=== PATIENT | male | born 1945 | race Caucasian/White ===

== ENCOUNTER → 2019-06-15 | Day surgery (SDC) | payer MEDICARE, BC ==
[~2019-06-15] MED LIST: ALIGN4 MG; AMBIEN5 MG PO; ASPIRIN81 MG; ATORVASTATIN CA20 MG PO; CARVEDILOL12.5 MG PO; CENTRUM SILVER1 EAC4; CIPRO500 MG PO; FUROSEMIDE40 MG PO; GLUCOSAMINE &1 EAC1; IRON; JANUVIA100 MG PO; LIDOCAINE HCL 2% LOCAL INJ 5 ML SDV VIAL INJ ONE; LOSARTAN POTASS25 MG; METOLAZONE5 MG PO; POTASSIUM CHLO10 ME1 PO; PROPOFOL IV EMULSION 10 MG/ML 20 ML VIAL ONE; SEVOFLURANE INHAL SOLN 250 ML PEN BTL ONE; VITAMIN D34000 UNIT
--- NOTE | 2019-06-15 07:10 | Pre Op History & Physical ---
DATE OF SURGERY: 06/15/2019. CHIEF COMPLAINT: Left-sided hearing loss. HISTORY OF PRESENT ILLNESS: This 74-year-old male, who was seen in the beginning of May for a 3-week history of hearing loss. The patient denies any tinnitus. He denies any vertigo. Hearing loss was sudden in onset. The patient has no surgery to the ear. He denies any discharge or otalgia from the ear. He had ear cleaned out previously. Audiogram of the ear, that was done recently showed the patient has right ear [id number] high-frequency sensory hearing loss, with speech discrimination of 80%, and profound hearing loss on the left ear with speech discrimination of 8%. The patient had an MRI of the skull base. The patient had CT scan of the IAC because he had a pacemaker, which did not show any abnormality in the IAC area. The patient is a type 2 diabetic. REVIEW OF SYSTEMS: System review showed no recent cardiovascular, respiratory, or GI problem. PAST MEDICAL HISTORY: The patient has type 2 diabetes, coronary artery disease, and had a pacemaker insertion. He has history of skin cancer and history of anemia. PAST SURGICAL HISTORY: He has previous cardiac stent and pacemaker insertion. ALLERGIES: HE HAS NO KNOWN ALLERGIES. MEDICATIONS: Current medications, he is on gemfibrozil, carvedilol, vitamin D3, glucosamine-chondroitin, losartan, Januvia, Centrum, aspirin, atorvastatin. The patient also is on iron replacement and Lasix. SOCIAL HISTORY: He smokes about two packs a day and is a nondrinker. FAMILY HISTORY: Noncontributory. PHYSICAL EXAMINATION: VITAL SIGNS: On examination, the patient's vital signs were within normal limits. He was seen with his . HEENT: Ear exam showed normal tympanic membranes bilaterally. Nasal exam showed deviated nasal septum on the right side about 30%. Oropharynx and oral cavity showed 2+ tonsils bilaterally with Mallampati level 2. NECK: Showed no lymph node or thyroid palpable. CHEST: Showed good air entry bilaterally. CARDIOVASCULAR: Showed S1 and S2. No murmur noted. CRITICAL CARE REGISTERED NURSE: Cranial nerves II through XII were within normal limits. ASSESSMENT AND PLAN: Mr. Zaragoza has left-sided sensorineural hearing loss, which has been resistant to conservative therapy. He cannot be on the systemic steroid because of his diabetes. The patient also has slightly anemic with hemoglobin of 9.5. The suggested treatment is left myringotomy and tube, and Decadron instillation to the left ear and other necessary procedure. The complication of procedure includes, but not limited to bleeding, infection, no improvement of the hearing, TM perforation, persistent drainage from the ear, hearing loss, persistent unsteadiness. The alternative will be continue observation. Decadron installation in the office setting. Myringotomy and tubes in the office setting. The patient has elected to undergo surgical procedure. I have reviewed the CT scan of the IAC with Dr. Nuñez and find no obvious abnormality in the IAC region. MD J LUIS Ruiz/OSMANYL /[id number] cc: DR. SIMEON MAGANA
[2019-06-15 09:35] VITALS: BP 116/61
--- NOTE | 2019-06-15 15:41 | Operative Report ---
DATE OF PROCEDURE: 06/15/2019 SURGEON: Keven Torres MD PREOPERATIVE DIAGNOSIS: Left sudden sensorineural hearing loss. POSTOPERATIVE DIAGNOSIS: Left sudden sensorineural hearing loss. PROCEDURE PERFORMED: Left myringotomy and tubes with Decadron to the left middle ear cleft. ANESTHESIA: Anesthesiology group. INDICATIONS: This 74-year-old male has a one-month history of hearing loss in the left ear. This was sudden in onset. The patient has no fluctuation of the hearing. Audiogram that was done showed the patient has left profound sensorineural hearing loss with bljghkxi-fl-xrxaqb high frequency sensorineural hearing loss on the right side. Speech discrimination was 8% on the left. A CT scan of the IEC was done, which show no obvious abnormality. The patient has a pacemaker and cannot get an MRI of the skull base. It was decided that left myringotomy and tube with Decadron instillation of the left ear and other necessary procedure will be beneficial for him. DESCRIPTION OF PROCEDURE: The patient was taken to the operating room, put under general anesthesia, LMA airway created. The left ear was examined. The ear canal was debrided. Myringotomy was done in anterior-inferior quadrant. No effusion was noted in the middle ear cleft. A 1 mL of Decadron 24 mg/mL was instilled into the right middle ear cleft. The patient tolerated the above procedure well with minimal blood loss. He was able to be transferred to recovery room in stable condition. Keven Torres MD DKH/MODL /[id number] cc: Dean Mendez MD
== END | disposition home or self-care (01) ==
LOC: OR 06:46
PROVIDERS: ATTEND Otolaryngology Otolaryngology/Facial Plastic Surgery
DX: H91.22 Sudden idiopathic hearing loss, left ear (principal); I25.10 Atherosclerotic heart disease of native coronary artery without angina pectoris; D64.9 Anemia, unspecified; E11.22 Type 2 diabetes mellitus with diabetic chronic kidney disease; I13.0 Hypertensive heart and chronic kidney disease with heart failure and stage 1 through stage 4 chronic kidney disease, or unspecified chronic kidney disease; N18.9 Chronic kidney disease, unspecified; I50.9 Heart failure, unspecified; E78.2 Mixed hyperlipidemia; F17.210 Nicotine dependence, cigarettes, uncomplicated; Z79.82 Long term (current) use of aspirin; Z79.84 Long term (current) use of oral hypoglycemic drugs; Z95.0 Presence of cardiac pacemaker; Z95.5 Presence of coronary angioplasty implant and graft
CPT/HCPCS: 36415; 82948; 93005; J2001